=== PATIENT | male | born 1975 | race Caucasian/White ===

== ENCOUNTER 2016-07-13 13:05 | Outpatient (CLI) | payer OTHER | END 2016-07-13 13:06 | disposition home or self-care (01) | DX: G47.10 Hypersomnia, unspecified (principal); G47.8 Other sleep disorders; R06.83 Snoring ==

== ENCOUNTER 2016-07-15 21:06 | Outpatient (CLI) | payer OTHER | END 2016-07-15 21:07 | disposition home or self-care (01) | DX: G47.61 Periodic limb movement disorder (principal) ==

== ENCOUNTER 2016-07-27 10:23 | Outpatient (CLI) | payer OTHER | END 2016-07-27 10:24 | disposition home or self-care (01) | DX: G47.61 Periodic limb movement disorder (principal); R06.83 Snoring; R53.83 Other fatigue ==

== ENCOUNTER 2016-09-24 11:18 | Emergency (ER) | payer OTHER ==
[2016-09-24 11:27] VITALS: BP 154/93
--- NOTE | 2016-09-24 12:29 | ED Physician Documentation ---
History of Present Illness - Stated complaint Stated Complaint: FEVER, BODY ACHES - Chief complaint Chief Complaint: General - History obtained from History obtained from: Patient - Additonal information Additional information: This is a previously healthy 40-year-old gentleman who just Retired from the [employer], on September 02. He has not traveled recently. For the last 9 days he has been sick with chills, body aches, mild sore throat and mild cough. He has had fevers every day for the last 6 days save for 1. His maximum temperature was 102.9. He denies any rash, vomiting, diarrhea. He was seen at the [employer] [facility] 4 days ago, he says lab work was done and was unremarkable, flu swab negative, chest x-ray negative. He continues to run fever and have night sweats. Review of Systems Ten Systems: 10 systems reviewed and negative Constitutional: reports: Fever, Chills, Myalgias, Fatigue, Sweats Ears: denies: Ear pain Nose: denies: Rhinorrhea / runny nose, Congestion Throat: reports: Sore throat Respiratory: reports: Cough. denies: Dyspnea GI: denies: Abdominal Pain, Diarrhea PD PAST MEDICAL HISTORY - Past Medical History Past Medical History: No - Past Surgical History Past Surgical History: Yes - Present Medications Home Medications: Ambulatory Orders Medication Instructions Recorded Confirmed Albuterol Sulfate [Proair Hfa 1 puffs INH PRN PRN 09/24/16 09/24/16 Inhaler] Fluticasone Propionate 1 spray INH BID 09/24/16 09/24/16 Loratadine [Claritin] 10 mg PO DAILY 09/24/16 09/24/16 buPROPion [Wellbutrin Sr] 150 mg PO BID 09/24/16 09/24/16 guaiFENesin/DEXTROMETHORPHAN 10 mg PO PRN PRN 09/24/16 09/24/16 [Robitussin Dm] - Allergies Allergies/Adverse Reactions: Allergies Allergy/AdvReac Type Severity Reaction Status Date / Time No Known Drug Allergies Allergy Verified 09/24/16 11:25 - Social History Does the pt smoke?: No Smoking Status: Former smoker Does the pt drink ETOH?: No Does the pt have substance abuse?: No - Family History Family history: reports: Non contributory - Immunizations Immunizations are current?: Yes Immunizations: TDAP current <10years - POLST Patient has POLST: No PD ED PE NORMAL - Vitals Vital signs reviewed: Yes - General General: Alert and oriented X 3, No acute distress, Well developed/nourished - HEENT HEENT: PERRL, EOMI, Ears normal, Moist mucous membranes, Pharynx benign - Neck Neck: Supple, no meningeal sign, No bony TTP, No adenopathy - Cardiac Cardiac: RRR, No murmur - Respiratory Respiratory: No respiratory distress, Clear bilaterally - Abdomen Abdomen: Normal bowel sounds, Soft, Non tender - Back Back: No CVA TTP, No spinal TTP - Derm Derm: Normal color, Warm and dry - Extremities Extremities: No edema, No calf tenderness / cord - Neuro Neuro: Alert and oriented X 3, Normal speech - Psych Psych: Normal mood, Normal affect Results - Vitals Vitals: Vital Signs - 24 hr 09/24/16 11:21 Temperature 37.0 C Heart Rate 79 Respiratory 16 Rate Blood Pressure 154/93 H O2 Saturation 98 Oxygen O2 Source Room air - Labs Labs: Laboratory Tests 09/24/16 09/24/16 09/24/16 12:30 12:30 12:30 WBC 10.8 RBC 5.01 Hgb 14.0 Hct 40.0 L MCV 79.8 L MCH 28.0 MCHC 35.0 RDW 13.0 Plt Count 282 MPV 7.7 Neut # 8.4 H Lymph # 1.0 L Stoddard # 1.0 Eos # 0.3 Baso # 0.0 Absolute Nucleated RBC 0.01 Nucleated RBCs 0.0 Sodium 137 Potassium 4.2 Chloride 101 Carbon Dioxide 26 Anion Gap 10.0 BUN 7 Creatinine 0.9 Estimated GFR (MDRD) 94 Glucose 93 Calcium 9.2 Total Bilirubin 0.7 AST 30 ALT 61 H Alkaline Phosphatase 95 Total Protein 8.0 Albumin 4.2 Globulin 3.8 Albumin/Globulin Ratio 1.1 Lipase 18 L Infectious Stoddard Assay POSITIVE A - Rads (name of study) 2v chest Radiology: EMP read contemporaneously (NAD, RML atalectasis or scar) PD MEDICAL DECISION MAKING - ED course ED course: This is a 40-year-old gentleman who presents with about 7 days of fever without a source and is found to have mononucleosis. He was counseled as to the diagnosis and conservative care of this diagnosis. Departure - Departure Disposition: 01 Home, Self Care Clinical Impression: Mononucleosis, Fever Condition: Good Record reviewed to determine appropriate education?: Yes Instructions: ED Mononucleosis Comments: Your blood pressure was elevated today on check into the emergency department. This does not mean that you have hypertension, it is a common phenomenon to come to the emergency department and have elevated blood pressure. I recommend that she see her primary care physician within the week to have it rechecked when you are feeling better. Discharge Date/Time: 09/24/16 13:10
[2016-09-24 12:40] LABS: BASOPHILS % (AUTO) 0.4 %; EOSINOPHILS # (AUTO) 0.3 10^3/uL (0.0-0.7); EOSINOPHILS % (AUTO) 2.4 %; LYMPHOCYTES % (AUTO) 9.4 %; MEAN CORPUSCULAR VOLUME 79.8 fL (80.0-94.0); MEAN PLATELET VOLUME 7.7 fL (7.4-11.4); MONOCYTES % (AUTO) 9.6 %; NEUTROPHILS # (AUTO) 8.4 10^3/uL (1.5-6.6); NEUTROPHILS % (AUTO) 78.2 %; RED BLOOD COUNT 5.01 10^6/uL (4.70-6.10); UNCORRECTED WHITE BLOOD COUNT 10.8 x10^3/uL; WHITE BLOOD COUNT 10.8 x10^3/uL (4.8-10.8)
[2016-09-24 12:48] LABS: MONO NEG QC NEGATIVE (Negative); MONO POS QC POSITIVE (Positive)
[2016-09-24 12:50] LABS: ALBUMIN/GLOBULIN RATIO 1.1 (1.0-2.2); BILIRUBIN,TOTAL 0.7 mg/dL (0.2-1.0); CALCIUM 9.2 mg/dL (8.5-10.3); CREATININE 0.9 mg/dL (0.6-1.2); POTASSIUM 4.2 mmol/L (3.5-5.0)
--- NOTE | 2016-09-24 12:59 | XRAY Preliminary Report ---
Exam: XR Chest 2 View PA/LAT IMPRESSION: Right middle lobe atelectasis or scar. No definite acute disease. [facility] SITE ID: [id number]
--- NOTE | 2016-09-24 13:02 | XRAY Report ---
EXAM: CHEST RADIOGRAPHY EXAM DATE: 09/24/2016 12:48 PM. CLINICAL HISTORY: Fever cough. COMPARISON: None. TECHNIQUE: 2 views. FINDINGS: Lungs/Pleura: No definite localized infiltrate, consolidation, or effusion. Linear atelectasis or sca rring in the right middle lobe. Mediastinum: Heart and mediastinal contours are unremarkable. Other: None. IMPRESSION: Right middle lobe atelectasis or scar. No definite acute disease. [facility] Referring Provider Line: [phone] SITE ID: [id number]
== END 2016-09-24 13:10 | disposition home or self-care (01) ==
LOC: ED 11:18
DX: B27.90 Infectious mononucleosis, unspecified without complication (principal); R50.9 Fever, unspecified; R03.0 Elevated blood-pressure reading, without diagnosis of hypertension; Z87.891 Personal history of nicotine dependence
CPT/HCPCS: 36415; 71020; 80053; 83690; 85025; 86308; 99283

== ENCOUNTER 2016-10-16 10:22 | Emergency (ER) | payer OTHER ==
[2016-10-16] MEDS ORDERED: PROPARACAINE 0.5% OPHTH DROPS 15 ML RIGHTEYE STA (10:46)
[2016-10-16] MEDS ORDERED: PROPARACAINE 0.5% OPHTH DROPS 15 ML ONE ×2 (11:00→11:02)
[2016-10-16] MEDS ORDERED: prednisoLONE 1% OPHTH DROPS 75 DROPS/5 ML BOTTLE RIGHTEYE STA (11:36)
[2016-10-16] MEDS ORDERED: CYCLOPENTOLATE 1% OPHTH DROPS 2 ML RIGHTEYE STA (11:36)
--- NOTE | 2016-10-16 11:41 | ED Physician Documentation ---
History of Present Illness - Stated complaint Stated Complaint: R EYE PX - Chief complaint Chief Complaint: Heent - Additonal information Additional information: hx from pt severe R eye pain and tearing worse with light no trauma no contacts no purulent dc or matting s/p LASIK many yr ago Review of Systems Eyes: reports: Photophobia, Irritation. denies: Loss of vision PD PAST MEDICAL HISTORY - Past Medical History Other Past Medical History: recent mono - Past Surgical History Past Surgical History: Yes - Present Medications Home Medications: Ambulatory Orders Medication Instructions Recorded Confirmed Loratadine [Claritin] 10 mg PO DAILY 09/24/16 10/16/16 buPROPion [Wellbutrin Sr] 150 mg PO BID 09/24/16 10/16/16 Cyclopentolate 1% Ophth Drops 1 drops OPTH Q8H #1 bottle 10/16/16 [Cyclogel 1% Ophth Drops] prednisoLONE 1% OPHTH DROPS [Pred 1 drops OPTH Q6H #1 bottle 10/16/16 Forte 1% Ophth Drops] - Allergies Allergies/Adverse Reactions: Allergies Allergy/AdvReac Type Severity Reaction Status Date / Time No Known Drug Allergies Allergy Verified 09/24/16 11:25 - Social History Does the pt smoke?: No Smoking Status: Former smoker Does the pt drink ETOH?: No Does the pt have substance abuse?: No - Immunizations Immunizations are current?: Yes Immunizations: TDAP current <10years - POLST Patient has POLST: No PD ED PE NORMAL - Vitals Vital signs reviewed: Yes - HEENT HEENT: EOMI, Other (R eye pupil 3 (left is 6) but reactive, injected, limbal flush, no FB even under lid, no abrasion, + ant flare no blood, pressure 13 and 14 (WNL)). No: PERRL (L 6 R 3 reactive pain with consensual constriction) Results - Vitals Vitals: Vital Signs - 24 hr 10/16/16 10:25 Temperature 36.2 C L Heart Rate 70 Respiratory 18 Rate Blood Pressure 134/94 H O2 Saturation 99 Oxygen O2 Source Room air PD MEDICAL DECISION MAKING - ED course ED course: initally concern for galucome but pressure WNL with pupillary contriction ant flare limbal flush suspect ant uveitis started prednisilone and cyclogyl no ophtho frontend engineer from [facility] but Dr Salvador kindly agreed to hear about the case and see the pt in fup on Tuesday - he recommends predforte 4Xdaily and cyclogyl Departure - Departure Disposition: 01 Home, Self Care Clinical Impression: Acute anterior uveitis Condition: Good Instructions: Iritis About Follow-Up: GEOFF FERREIRA [Primary Care Provider] - Dom Salvador MD [Provider Admit Priv/Credential] - (Tuesday - call at 9 AM to schedule what time) Prescriptions: Cyclopentolate 1% Ophth Drops [Cyclogel 1% Ophth Drops] 1 drops OPTH Q8H #1 bottle prednisoLONE 1% OPHTH DROPS [Pred Forte 1% Ophth Drops] 1 drops OPTH Q6H #1 bottle Comments: It looks like you have an eye problem called anterior uveitis This is inflammation of the chamber behind your cornea and the muscles that control the size of your pupil Close follow up with the eye doctor is very important. Some cases of uveitis can be due to infection (viral or otherwise), but also can be due to autoimmune diseases and other general medical problems so you will also need to follow up with your PMD for further testing to determine why you got uveitis in the first place Return if worse over the weekend Also please follow up with your PMD to get your blood pressure rechecked - it was high today Forms: Activity restrictions
[2016-10-16] MEDS ORDERED: prednisoLONE 1% OPHTH DROPS 75 DROPS/5 ML BOTTLE ONE (11:49)
[2016-10-16 13:24] VITALS: BP 132/90
== END 2016-10-16 13:40 | disposition home or self-care (01) ==
LOC: ED 10:22
DX: H20.00 Unspecified acute and subacute iridocyclitis (principal)
CPT/HCPCS: 99283; A9270; J3490